=== PATIENT | male | born 1990 | race Caucasian/White ===

== ENCOUNTER 2018-11-18 20:47 | Emergency (ER) | payer SELFPAY ==
[~2018-11-18] VITALS: Ht 162.6 cm; Wt 70.0 kg
[2018-11-18] MEDS ORDERED: FLUORESCEIN SODIUM 1MG/STRIP OP ONE (21:45)
[2018-11-18] MEDS ORDERED: TETRACAINE 0.5% OPHTH DROPS 4ML OP ONE (21:45)
[2018-11-18 22:59] VITALS: BP 125/72
== END 2018-11-18 22:59 | disposition home or self-care (01) ==
LOC: ER 20:47
DX: S05.02XA Injury of conjunctiva and corneal abrasion without foreign body, left eye, initial encounter (principal); X58.XXXA Exposure to other specified factors, initial encounter; Y93.89 Activity, other specified; Y92.89 Other specified places as the place of occurrence of the external cause; Y99.8 Other external cause status
CPT/HCPCS: 99283